=== PATIENT | male | born 1995 | race Caucasian/White ===

== ENCOUNTER 2017-08-17 19:58 | Emergency (ER) | payer SELFPAY ==
[2017-08-17] MEDS ORDERED: Naproxen 500 MG TAB ONE (22:08)
[2017-08-17] MEDS ORDERED: HYDROcodone/Acetaminophen 10/325 mg Tablet ONE (22:08)
[2017-08-17] MEDS ORDERED: Lidocaine 2% Jelly 5 ML TUBE ONE ×2 (22:14→22:18)
== END 2017-08-17 22:35 | disposition home or self-care (01) ==
LOC: MADERS 19:58
DX: L55.1 Sunburn of second degree (principal); J45.909 Unspecified asthma, uncomplicated; F17.220 Nicotine dependence, chewing tobacco, uncomplicated
CPT/HCPCS: 99282

== ENCOUNTER 2018-02-15 08:53 | Emergency (ER) | payer SELFPAY | END 2018-02-15 10:00 | disposition home or self-care (01) | LOC: MADERS 08:53 | DX: J02.9 Acute pharyngitis, unspecified (principal); J45.909 Unspecified asthma, uncomplicated; F17.220 Nicotine dependence, chewing tobacco, uncomplicated | CPT/HCPCS: 99281 ==